=== PATIENT | male | born 1975 | race Caucasian/White ===

== ENCOUNTER → 2020-08-12 08:17 | Outpatient (BNVA) | payer BC, SELFPAY | PROVIDERS: Family Provider Family Medicine; PCP Family Medicine; Visit Provider Family Medicine | DX: Z13.6 Encounter for screening for cardiovascular disorders (principal); R35.1 Nocturia; R22.0 Localized swelling, mass and lump, head | CPT/HCPCS: 80053; 80061; 84153; 85025 ==

== ENCOUNTER 2021-01-10 07:44 | Emergency (ER) | payer BC, SELFPAY ==
[2021-01-10 07:53] VITALS: BP 148/89; PULSE 71; RESP 16; TEMP 36.9; O2SAT 97; BMI 46.8
--- NOTE | 2021-01-10 08:04 | CT_ITS ---
WS: [id number] CT HEAD TECHNIQUE: Noncontrast CT of the head obtained from the skullbase to the vertex. CLINICAL INFORMATION: new onset AMS, word searching COMPARISON: CT January 2013 DLP: 906.[address] scans at [facility] use at least one of these dose optimization techniques: automat ed exposure control; mA and/or kV adjustment per patient size (includes targeted exams where dose is matched to clinical indication); or iterative reconstruction. FINDINGS: No evidence of intracranial hemorrhage or mass effect. Ventricular system and basal cisterns are barrientos ntNo extra-axial fluid collections. No evidence of mass or mass effect. Normal beasley-white differentia tion. Paranasal sinuses and mastoid air cells are well aerated. .Normal visualized soft tissues. CT/CT head wo con* [id number] IMPRESSION: 1. No evidence of intracranial hemorrhage or mass effect. 2. Normal beasley-white differentiation. 3. No acute intracranial findings.
--- NOTE | 2021-01-10 08:04 | XR_ITS ---
WS: [id number] Portable AP upright chest, 01/10/2021 Clinical Data: dizzy Comparison: Portable chest, 01/26/2016. Findings: No nodules, masses or effusions are seen. The heart is normal. The pulmonary vascularity is not increased. No pneumonia or pneumothorax is seen. XR/XR chest 1V portable [id number] Impression: Negative chest.
--- NOTE | 2021-01-10 08:05 | ECG_ITS ---
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 Measurements Intervals Summers Rate: 55 P: 25 MT: 175 QRS: -20 QRSD: 125 T: 19 QT: 390 QTc: 375 Interpretive Statements SINUS BRADYCARDIA MODERATE INTRAVENTRICULAR CONDUCTION DELAY [110+ ms QRS DURATION] INTERPRETATION BASED ON A DEFAULT AGE OF 40 YEARS Compared to ECG 10/10/2015 21:07:10 No significant changes Electronically Signed On 01-11-2021 19:14:30 SAWDUST DRIER by Kirill Rosado M.D. [email or web address]
--- NOTE | 2021-01-10 08:06 | ED_ITS ---
HPI - General Adult General: Chief complaint: General Medical Stated complaint: dizzy, feels faint Time Seen by Provider: 01/10/21 07:59 History of Present Illness: HPI narrative: Patient walks in the ER. 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 Work brings him in. Patient said he has had a hard time finding words right now just feels lightheaded. States he is feeling fine yesterday has no history of this. Patient states he has been on intermittent fasting diet for the last 2 months because a history of hypoglycemia says has been tolerating the diet fine. Did not eat breakfast this morning. MD complaint: Lightheaded Onset (ago): minute(s) Associated symptoms: Reports no associated symptoms; Deny chest pain, dyspnea, headache(s), nausea, rash or vomiting Treatments prior to arrival: none Review of Systems Const: Denies: fever(s), chills or body aches Eyes: Denies: change in vision or blurry vision ENMT: Denies: throat pain or nasal congestion Card: Denies: chest pain or dyspnea on exertion Resp: Denies: dyspnea, productive cough or non-productive cough GI: Denies: abdominal pain, nausea or vomiting : Denies: difficulty urinating Musc: Denies: extremity pain Skin/Breast: Denies: rash Neuro: Reports: dizziness and other (Lightheaded difficulty getting words out); Denies: headache(s) Psych: Denies: anxiety or depression Amador/Lymph: Denies: easy bruising PFSH ED PFSH: Medical History Hepatic steatosis Hydronephrosis JUAN DIEGO (obstructive sleep apnea) Ureterolithiasis Surgical History History of back surgery Family History Mother Diabetes Hypertension Father Diverticulitis Social History (Updated 01/10/21 @ 07:58 by Jaylen Sharma RN) Smoking and tobacco status: never smoked Alcohol intake: never Substance/Drug Use: never Marital status: Current occupational status: employed History of recent travel: No Physical Exam Const: COMMON NORMALS: no acute distress, average body habitus and patient oriented x3 HENMT: COMMON NORMALS: normocephalic HEAD & SCALP: normal to inspection and normocephalic FACE & SINUS: normal facial exam Eye: COMMON NORMALS: conjunctivae normal GENERAL EYE: appearance normal, both eyes and all related structures CONJUNCTIVA: Yes conjunctivae normal Neck/C-Spine: COMMON NORMALS: no JVD Chest: COMMONS NORMALS: normal inspection of the chest Resp: COMMON NORMALS: normal respiratory effort and clear to auscultation bilaterally AUSCULTATION: clear to auscultation bilaterally Cardio: COMMON NORMALS: no JVD, regular rate and regular rhythm RATE: regular rate RHYTHM: regular rhythm GI: COMMON NORMALS: Normal to inspection, nondistended, normoactive bowel sounds present Extremity: COMMON NORMALS: normal to inspection and full ROM Neuro: MIGDALIA COMA SCALE: other (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 but does a good job with history answers all questions appropriately) COMMON NORMALS: patient oriented x3 Course Vital Signs: Vital signs: Vital Signs Temperature 98.4 F 01/10/21 07:53 Pulse Rate 51 L 01/10/21 09:00 Respiratory Rate 16 01/10/21 07:53 Blood Pressure 124/75 01/10/21 09:00 Pulse Oximetry 98 01/10/21 09:00 MDM - General Adult MDM Narrative: Medical decision making narrative: I think that the patient's fasting is probably what the cause of his problem is while his own tires he had a breakfast and then been since yesterday he had 8 prior blood sugar dropped down he has history of hypoglycemia. Talked with patient about changing diet or doing something different to help control his hyperglycemia. No symptoms hypoglycemia. Differential could include cardiac event, on detected neurological event, fatigue, infection and/or inner ear problems. RBC count was slightly elevated will recheck that when he visit with Patient will foll ow up with PCP care provider. At discharge time patient is all appropriate did discuss differential diagnosis and follow-up Dr. Posadas. Patient answers all questions appropriately neurologically all is intact. Lab Data: Labs: Lab Results 01/10/21 01/10/21 01/10/21 Range/Units 08:20 08:20 08:20 WBC 4.6 (4.0-10.0) 10^3/ uL RBC 5.58 H (4.1-5.3) 10^6/u L Hgb 16.2 (11.7-16.6) g/dL Hct 48.4 (42.0-52.0) % MCV 86.7 (80-94) fL MCH 29.0 (28.0-34.0) pg MCHC 33.5 (30.0-36.0) g/dL RDW 13.5 (12.1-15.1) % Plt Count 158 (130-400) 10^3/c mm MPV 11.5 H (7.4-10.4) fL Neut % (Auto) 75.6 % Lymph % (Auto) 17.6 % Mccormick % (Auto) 5.0 % Eos % (Auto) 0.9 % Baso % (Auto) 0.7 % Neut # (Auto) 3.48 (1.8-7.7) 10^3/u L Lymph # (Auto) 0.8 (0.8-4.8) 10^3/u L Mccormick # (Auto) 0.2 (0.2-0.9) 10^3/u L Eos # (Auto) 0.0 (0.0-0.8) 10^3/u L Baso # (Auto) 0.0 (0.0-0.1) 10^3/u L Nucleated RBC % (a uto) 0 % Nucleated RBCs # 0.0 /100WBC PT 14.20 (12.1-14.9) SECO NDS INR 1.07 (0.8-1.2) Sodium 141 (136-145) mmol/L Potassium 4.4 (3.5-5.1) mmol/L Chloride 106 (98-107) mmol/L Carbon Dioxide 26 (22-29) mmol/L Anion Gap 13.4 (5-19) BUN 8 (6-20) mg/dL Creatinine 0.7 (0.7-1.2) mg/dL GFR Calculation 121.4 (90-130) mL/min Glucose 102 (65-115) mg/dL POC Glucose (70-110) mg/dL Calculated Osmolal ity 291 (285-295) mOsm/k g Lactate (0.5-2.2) mmol/L Calcium 9.1 (8.5-10.5) mg/dL Total Bilirubin 0.7 (0.15-1.2) mg/dL AST 18 (0-40) U/L ALT 34 (0-41) U/L Alkaline Phosphata se 61 (40-130) IU/L Troponin T Baselin e (0-15) ng/L Total Protein 6.7 (6.6-8.7) g/dL Albumin 4.5 (3.5-5.2) g/dL Globulin 2.2 (1.3-4.6) g/dL 01/10/21 01/10/21 01/10/21 Range/Units 08:20 08:20 08:58 WBC (4.0-10.0) 10^3/ uL RBC (4.1-5.3) 10^6/u L Hgb (11.7-16.6) g/dL Hct (42.0-52.0) % MCV (80-94) fL MCH (28.0-34.0) pg MCHC (30.0-36.0) g/dL RDW (12.1-15.1) % Plt Count (130-400) 10^3/c mm MPV (7.4-10.4) fL Neut % (Auto) % Lymph % (Auto) % Mccormick % (Auto) % Eos % (Auto) % Baso % (Auto) % Neut # (Auto) (1.8-7.7) 10^3/u L Lymph # (Auto) (0.8-4.8) 10^3/u L Mccormick # (Auto) (0.2-0.9) 10^3/u L Eos # (Auto) (0.0-0.8) 10^3/u L Baso # (Auto) (0.0-0.1) 10^3/u L Nucleated RBC % (a uto) % Nucleated RBCs # /100WBC PT (12.1-14.9) SECO NDS INR (0.8-1.2) Sodium (136-145) mmol/L Potassium (3.5-5.1) mmol/L Chloride (98-107) mmol/L Carbon Dioxide (22-29) mmol/L Anion Gap (5-19) BUN (6-20) mg/dL Creatinine (0.7-1.2) mg/dL GFR Calculation (90-130) mL/min Glucose (65-115) mg/dL POC Glucose 94 (70-110) mg/dL Calculated Osmolal ity (285-295) mOsm/k g Lactate 0.9 (0.5-2.2) mmol/L Calcium (8.5-10.5) mg/dL Total Bilirubin (0.15-1.2) mg/dL AST (0-40) U/L ALT (0-41) U/L Alkaline Phosphata se (40-130) IU/L Troponin T Baselin e 7 (0-15) ng/L Total Protein (6.6-8.7) g/dL Albumin (3.5-5.2) g/dL Globulin (1.3-4.6) g/dL EKG Data^: EKG 1: EKG interpretation date: 01/10/21 EKG interpretation time: : Computer generated interpretation: Chest X-Ray 01/10/21 08:04 Impression: Negative chest. Head CT 01/10/21 08:04 IMPRESSION: 1. No evidence of intracranial hemorrhage or mass effect. 2. Normal beasley-white differentiation. 3. No acute intracranial findings. Ventricular rate 55 bpm CO interval 175 ms QRS durations 125 ms QT is 390 ms sinus bradycardia Discharge Plan Discharge Patient Disposition: Home Clinical Impression: Episodic lightheadedness Condition: Stable Prescriptions: No Action azithromycin 250 mg tablet See Rx Instructions PO .COMPLEX Qty: 6 RF: 0 Discharge Orders: Discharge ED (Routine); Ordered 01/10/21 Ordered By: Khai Grove Referrals: Jessie Posadas DO [Primary Care Provider] - Discharge Diet: Usual diet Discharge Activity: Increase activity as tolerated Patient Instructions: Lightheadedness (ED) Activity Restrictions/Additional Instructions: Monitor blood sugars regularly. Evaluate intermittent fasting diet by taking blood sugars regularly. Follow-up your family medical provider if symptoms continue. Coding Level of Care Code ED Solderer Assembly Repair for Chg Fwd Exam Comprehensive
[2021-01-10 08:11] VITALS: O2SAT 97
[2021-01-10 08:46] LABS: Basophils % 0.7 %; Eosinophils % 0.9 %; Hematocrit 48.4 % (42.0-52.0); Hemoglobin 16.2 g/dL (11.7-16.6); Lymphocytes # 0.8 10^3/uL (0.8-4.8); Lymphocytes % 17.6 %; Mean Corpuscular HGB Conc 33.5 g/dL (30.0-36.0); Mean Corpuscular Volume 86.7 fL (80-94); Mean Platelet Volume 11.5 fL (7.4-10.4); Monocytes # 0.2 10^3/uL (0.2-0.9); Neutrophils # 3.48 10^3/uL (1.8-7.7); Neutrophils % 75.6 %; Nucleated Red Blood Cells % 0 %; Platelet Count 158 10^3/cmm (130-400); Red Blood Count 5.58 10^6/uL (4.1-5.3); Red Cell Distribution Width 13.5 % (12.1-15.1); White Blood Count 4.6 10^3/uL (4.0-10.0)
[2021-01-10] MEDS: sodium chloride 0.9% 1,000 ML 999 ML IV (08:55)
[2021-01-10 08:56] LABS: INR 1.07 (0.8-1.2)
[2021-01-10 09:00] VITALS: BP 124/75; PULSE 51; O2SAT 98
[2021-01-10 09:02] LABS: Alanine Aminotransferase 34 U/L (0-41); Albumin Level 4.5 g/dL (3.5-5.2); Alkaline Phosphatase 61 IU/L (40-130); Anion Gap 13.4 (5-19); Aspartate Amino Transferase 18 U/L (0-40); Blood Urea Nitrogen 8 mg/dL (6-20); Calcium 9.1 mg/dL (8.5-10.5); Carbon Dioxide 26 mmol/L (22-29); Chloride 106 mmol/L (98-107); Globulin 2.2 g/dL (1.3-4.6); Glomerular Filtration Rate 121.4 mL/min (90-130); Glucose 102 mg/dL (65-115); Osmolality Calculated 291 mOsm/kg (285-295); Potassium 4.4 mmol/L (3.5-5.1); Sodium 141 mmol/L (136-145); Total Bilirubin 0.7 mg/dL (0.15-1.2); Total Protein 6.7 g/dL (6.6-8.7); Troponin(5th) Baseline 7 ng/L (0-15)
[2021-01-10 09:03] LABS: Lactate (Lactic Acid level) 0.9 mmol/L (0.5-2.2)
[2021-01-10 09:03] LABS: Glucose Point of Care 94 mg/dL (70-110)
[2021-01-10 10:10] VITALS: BP 129/80; PULSE 68; O2SAT 98
== END 2021-01-10 10:10 | disposition home or self-care (01) ==
PROVIDERS: Emergency Provider Nurse Practitioner Family; PCP Family Medicine
DX: R42 Dizziness and giddiness (principal)
CPT/HCPCS: 36416; 70450; 71045; 80053; 82962; 83605; 84484; 85025; 85610; 93005; 96360; 99283; J7030

== ENCOUNTER → 2021-03-04 16:16 | Outpatient (BNVA) | payer BC, SELFPAY | PROVIDERS: PCP Family Medicine; Visit Provider Family Medicine | DX: Z11.52 Encounter for screening for COVID-19 (principal) | CPT/HCPCS: 87635 ==

== ENCOUNTER → 2021-04-30 15:42 | Outpatient (BNVA) | payer BC, SELFPAY | PROVIDERS: PCP Family Medicine; Visit Provider Nurse Practitioner Family | DX: Z11.52 Encounter for screening for COVID-19 (principal) | CPT/HCPCS: 87635 ==

== ENCOUNTER → 2021-06-05 14:31 | Outpatient (BNVA) | payer BC, SELFPAY | PROVIDERS: PCP Family Medicine; Visit Provider Nurse Practitioner Family | DX: Z20.822 Contact with and (suspected) exposure to COVID-19 (principal); J06.9 Acute upper respiratory infection, unspecified | CPT/HCPCS: 87635 ==

== ENCOUNTER 2021-07-07 15:45 | Outpatient (CLI) | payer BC, SELFPAY ==
[2021-07-07 15:58] VITALS: BP 143/84; PULSE 63; RESP 16; TEMP 37.4; O2SAT 95
[2021-07-07 17:20] VITALS: BP 151/90; PULSE 59; RESP 16; TEMP 37.3; O2SAT 95
--- NOTE | 2021-07-17 14:06 | DCPLANNER ---
client experience manager had message that patient received the monoclonal antibody infusion. client experience manager spoke with patient, he stated that right now he is doing good. Patient stated that before the infusion he had a fever, his whole body was sore, he had a headache that was a sharp pain, and that his joints hurt. Patient stated that after the infusion his energy level is almost back to normal. He stated that he is back to work. He stated that he does not have any symptoms at this time.
== END 2021-07-07 20:00 | disposition home or self-care (01) ==
LOC: OPS 12-01 12:11
PROVIDERS: PCP Family Medicine; Visit Provider Nurse Practitioner Family
DX: U07.1 COVID-19 (principal)
CPT/HCPCS: 87426; 96365

== ENCOUNTER → 2021-07-16 00:01 | Outpatient (BNVA) | payer BC, SELFPAY | PROVIDERS: PCP Family Medicine; Visit Provider Nurse Practitioner Family | DX: Z20.822 Contact with and (suspected) exposure to COVID-19 (principal) | CPT/HCPCS: 87426 ==

== ENCOUNTER → 2021-08-09 11:22 | Outpatient (BNVA) | payer BC, SELFPAY | PROVIDERS: PCP Family Medicine; Visit Provider Nurse Practitioner | DX: S49.92XA Unspecified injury of left shoulder and upper arm, initial encounter (principal); X58.XXXA Exposure to other specified factors, initial encounter | CPT/HCPCS: 73030 ==

== ENCOUNTER → 2021-08-25 15:09 | Outpatient (BNVA) | payer BC, SELFPAY | PROVIDERS: PCP Family Medicine; Visit Provider Family Medicine | DX: R30.0 Dysuria (principal) | CPT/HCPCS: 81000; 87086 ==

== ENCOUNTER → 2021-12-23 14:50 | Outpatient (BNVA) | payer BC, SELFPAY | PROVIDERS: PCP Family Medicine; Visit Provider Nurse Practitioner Family | DX: Z20.822 Contact with and (suspected) exposure to COVID-19 (principal) | CPT/HCPCS: 87426 ==

== ENCOUNTER → 2022-04-22 14:51 | Outpatient (BNVA) | payer BC, SELFPAY | PROVIDERS: PCP Family Medicine | DX: Z11.52 Encounter for screening for COVID-19 (principal) | CPT/HCPCS: 87635 ==

== ENCOUNTER 2022-09-23 15:30 | Outpatient (CLI) | payer BC, SELFPAY | END 2022-09-23 15:31 | disposition home or self-care (01) | LOC: SLEEP 09-24 11:09 | PROVIDERS: PCP Family Medicine; Visit Provider Family Medicine | DX: G47.33 Obstructive sleep apnea (adult) (pediatric) (principal) | CPT/HCPCS: G0399 ==

== ENCOUNTER 2022-12-07 06:17 | Emergency (ER) | payer MEDICAID, SELFPAY ==
[2022-12-07] VITALS (7 sets, daily range): BP systolic 135–147; BP diastolic 77–84; PULSE 58–68; RESP 16–22; TEMP 36.4–36.8; O2SAT 97–100; BMI 46.1
--- NOTE | 2022-12-07 06:48 | CTR_ITS ---
PROCEDURE INFORMATION: Exam: CT Abdomen And Pelvis Without Contrast Exam date and time: 12/07/2022 7:12 AM Age: 47 years old Clinical indication: Abdominal pain; Localized; Right lower quadrant (rlq); Prior surgery; Surgery type: Back; Additional info: R flank and rlq pain TECHNIQUE: Imaging protocol: Computed tomography of the abdomen and pelvis without contrast. Radiation optimization: All CT scans at this facility use at least one of these dose optimization techniques: automated exposure control; mA and/or kV adjustment per patient size (includes targeted exams where dose is matched to clinical indication); or iterative reconstruction. COMPARISON: CT abdomen pelvis w con* [id number] 09/25/2018 7:50 AM RADIATION DOSE METRICS: Total DLP (mGy-cm): 1382.42 FINDINGS: Lungs: Right middle lobe medial segment, lateral right basilar, inferior lingular mild pulmonary subsegmental atelectasis. Liver: Normal. No mass. Gallbladder and bile ducts: Normal. No calcified stones. No ductal dilation. Pancreas: Moderate pancreatic atrophy. Spleen: Normal. No splenomegaly. Adrenal glands: Normal. No mass. Kidneys and ureters: The right pelvic ureter is dilated to the level of a 4 x 2 x 2 mm calculus slightly more than 1 cm above the ureterovesical junction. The right kidney shows mild pelviectasis and borderline abdominal ureterectasis with mild perinephric stranding. Stomach and bowel: Unremarkable. No obstruction. No mucosal thickening. Appendix: The vermiform appendix is normal. Intraperitoneal space: No free air. No significant fluid collection. Vasculature: Calcified phleboliths are present in the lower pelvis bilaterally. Lymph nodes: No enlarged lymph nodes. Urinary bladder: Unremarkable as visualized. Reproductive: The prostate gland demonstrates nonspecific parenchymal calcifications. Bones/joints: Moderate L4-L5 and L5-S1 spondylosis with bilateral neural foraminal stenoses. Soft tissues: A small paraumbilical hernia containing only abdominal fat is noted. CT/CT kidney stone [id number] IMPRESSION: 1. Right obstructive uropathy secondary to a distal pelvic ureteral calculus. 2. Chronic calcific prostatitis.
[2022-12-07] MEDS: ondansetron 2 mg/ML SDV 2 mL 4 MG IVP (06:53)
[2022-12-07] MEDS: morphine 4 mg/mL SDV 1 mL IVP (06:54)
[2022-12-07 07:01] LABS: Alanine Aminotransferase 33 U/L (0-41); Albumin Level 4.4 g/dL (3.5-5.2); Alkaline Phosphatase 59 U/L (40-130); Anion Gap 16.2 (5-19); Aspartate Amino Transferase 16 U/L (0-40); Blood Urea Nitrogen 12 mg/dL (6-20); Calcium 8.9 mg/dL (8.5-10.5); Carbon Dioxide 22 mmol/L (22-29); Chloride 101 mmol/L (98-107); Globulin 2.5 g/dL (1.3-4.6); Glomerular Filtration Rate 103.2 mL/min (90-130); Glucose 130 mg/dL (65-115); Lipase 18 U/L (13-60); Osmolality Calculated 282 mOsm/kg (285-295); Potassium 4.2 mmol/L (3.5-5.1); Sodium 135 mmol/L (136-145); Total Bilirubin 0.7 mg/dL (0.15-1.2); Total Protein 6.9 g/dL (6.6-8.7)
[2022-12-07 07:06] LABS: Basophils % 0.6 %; Eosinophils % 0.7 %; Hematocrit 48.6 % (42.0-52.0); Hemoglobin 16.5 g/dL (11.7-16.6); Lymphocytes # 1.2 10^3/uL (0.8-4.8); Mean Corpuscular Hemoglobin 29.7 pg (28.0-34.0); Mean Corpuscular Volume 87.4 fl (80-94); Mean Platelet Volume 10.9 fL (7.4-10.4); Monocytes # 0.5 10^3/uL (0.2-0.9); Monocytes % 8.8 %; Neutrophils # 3.69 10^3/uL (1.8-7.7); Neutrophils % 67.7 %; Nucleated Red Blood Cells % 0 %; Platelet Count 168 10^3/cmm (130-400); Red Blood Count 5.56 10^6/uL (4.1-5.3); White Blood Count 5.5 10^3/uL (4.0-10.0)
--- NOTE | 2022-12-07 08:02 | ED_ITS ---
HPI - Abdominal Pain General: Chief Complaint: Abdominal Pain Stated Complaint: low abd pain Time Seen by Provider: 12/07/22 06:33 Source: patient Mode of arrival: ambulatory History of Present Illness: 47-year-old male presents emergency room with right flank pain predominant pain is radiated into the right lower quadrant. Sharp unrelenting pain. He has had renal stones in the past states this feels the same. Denies any vomiting or diarrhea. No previous abdominal surgeries. No hematuria dysuria urgency or frequency that he has noted. MD elicited complaint: abdominal pain Pertinent past history: kidney stones Onset (ago): hour(s) Pain Consistency: constant Location: RLQ Quality: sharp Radiation: R flank Migration to: RLQ Exacerbating factors: nothing Relieving factors: nothing Associated Symptoms: Denies belching, bloating, change in bowel habits, change in stool character, chills, coffee ground emesis, constipation, GI cramping, diarrhea, dyspepsia, dysuria, excessive flatus, fever(s), heartburn, hemato chezia, hematuria, hematemesis, fecal incontinence, loose stools, melena, nausea, poor appetite, syncope and vomiting Review of Systems Const: Denies: fever(s), chills, fatigue or malaise ENMT: Denies: throat pain, ear or mastoid pain, nasal discharge or nasal congestion Card: Denies: chest pain, palpitations, irregular heart rhythm, edema or syncope Resp: Denies: dyspnea, productive cough or non-productive cough GI: Denies: abdominal pain, nausea, vomiting, hematemesis, coffee ground emesis, heartburn, diarrhea, constipation, bloating, GI cramping, belching, excessive flatus, fecal incontinence, change in bowel habits, change in stool character, hematochezia or melena : Denies: flank pain, difficulty urinating, dysuria, urinary frequency, urinary urgency or hematuria Skin/Breast: Denies: rash or pruritus PFSH ED PFSH: Medical History Dysuria Hydronephrosis Left facial swelling Lumbar degenerative disc disease Nocturia JUAN DIEGO (obstructive sleep apnea) Osteoarthritis involving multiple joints on both sides of body Umbilical hernia Dr. Hayes 09/12/2021 visit Ureterolithiasis Surgical History History of back surgery History of dental surgery Family History Mother Diabetes Hypertension Father Diverticulitis Social History Smoking and tobacco status: never smoked Second hand smoke exposure: No Alcohol intake: never Desire information about alcohol rehabilitation?: No Desire information about substance/drug rehabilitation?: No Marital status: Current occupational status: employed History of recent travel: No Physical Exam Const: COMMON NORMALS: no acute distress GENERAL APPEARANCE: cooperative and comfortable ORIENTATION/CONSCIOUSNESS: Yes awake, Yes oriented to person, Yes oriented to place and Yes oriented to time HENMT: COMMON NORMALS: normocephalic, atraumatic and hearing grossly normal bilaterally HEAD & SCALP: normocephalic and atraumatic Resp: COMMON NORMALS: normal respiratory effort, No retractions, No use of accessory muscles and clear to auscultation bilaterally AUSCULTATION: clear to auscultation bilaterally Cardio: COMMON NORMALS: regular rate, regular rhythm and No murmurs present (Cardio) RATE: regular rate RHYTHM: regular rhythm GI: COMMON NORMALS: Soft to palpation and No hepatosplenomegaly present AUSCULTATION: Yes normoactive bowel sounds PALPATION: Yes Soft to palpation, No Tenderness to palpation present (GI), No Guarding due to palpation present (GI) and Yes No hepatosplenomegaly present : BLADDER/KIDNEY EXAM: Yes CVA tenderness Back/Pelvis: GENERAL BACK: Yes CVA tenderness CVA tenderness: right Extremity: COMMON NORMALS: normal to inspection, capillary refill normal, no clubbing, cyanosis or edema, no calf tenderness and no pedal edema Neuro: SENSORIUM/ORIENTATION: Yes oriented to person, Yes oriented to place and Yes oriented to time Skin: COMMON NORMALS: no rashes or lesions noted GENERAL SKIN EXAM: no rashes or lesions noted Course Vital Signs: Vital signs: Vital Signs Temperature 98.3 F 12/07/22 09:54 Pulse Rate 68 12/07/22 09:54 Respiratory Rate 18 12/07/22 09:54 Blood Pressure 135/77 12/07/22 09:54 Pulse Oximetry 97 12/07/22 09:54 Oxygen Delivery Me thod 12/07/22 09:54 MDM - Abdominal Pain Medical Decision Making CT shows right ureterolithiasis 4 x 2 x 2. Given the size of the stone would expect that the past patient's pain was difficult to initially get under control but did improve he is better now discharged home on hydrocodone tamsulosin 1 antiemetics strain urine. Medical Records I reviewed the patient's medical records. Lab Data I reviewed the patient's lab results. 12/07/22 06:32 12/07/22 06:32 Labs/Radiology: Radiology Impressions Abdomen/Pelvis CT 12/07/22 06:48 IMPRESSION: 1. Right obstructive uropathy secondary to a distal pelvic ureteral calculus. 2. Chronic calcific prostatitis. Laboratory Results WBC 5.5 10^3/uL (4.0-10.0) 12/07/22 06:32 RBC 5.56 10^6/uL (4.1-5.3) H 12/07/22 06:32 Hgb 16.5 g/dL (11.7-16.6) 12/07/22 06:32 Hct 48.6 % (42.0-52.0) 12/07/22 06:32 MCV 87.4 fl (80-94) 12/07/22 06:32 MCH 29.7 pg (28.0-34.0) 12/07/22 06:32 MCHC 34.0 g/dL (30.0-36.0) 12/07/22 06:32 RDW 13.0 % (12.1-15.1) 12/07/22 06:32 Plt Count 168 10^3/cmm (130-400) 12/07/22 06:32 MPV 10.9 fL (7.4-10.4) H 12/07/22 06:32 Neut % (Auto) 67.7 % 12/07/22 06:32 Lymph % (Auto) 22.0 % 12/07/22 06:32 Island % (Auto) 8.8 % 12/07/22 06:32 Eos % (Auto) 0.7 % 12/07/22 06:32 Baso % (Auto) 0.6 % 12/07/22 06:32 Neut # (Auto) 3.69 10^3/uL (1.8-7.7) 12/07/22 06:32 Lymph # (Auto) 1.2 10^3/uL (0.8-4.8) 12/07/22 06:32 Island # (Auto) 0.5 10^3/uL (0.2-0.9) 12/07/22 06:32 Eos # (Auto) 0.0 10^3/uL (0.0-0.8) 12/07/22 06:32 Baso # (Auto) 0.0 10^3/uL (0.0-0.1) 12/07/22 06:32 Nucleated RBC % (auto) 0 % 12/07/22 06:32 Nucleated RBCs # 0.0 /100WBC 12/07/22 06:32 Sodium 135 mmol/L (136-145) L 12/07/22 06:32 Potassium 4.2 mmol/L (3.5-5.1) 12/07/22 06:32 Chloride 101 mmol/L (98-107) 12/07/22 06:32 Carbon Dioxide 22 mmol/L (22-29) 12/07/22 06:32 Anion Gap 16.2 (5-19) 12/07/22 06:32 BUN 12 mg/dL (6-20) 12/07/22 06:32 Creatinine 0.8 mg/dL (0.7-1.2) 12/07/22 06:32 GFR Calculation 103.2 mL/min (90-130) 12/07/22 06:32 Glucose 130 mg/dL (65-115) H 12/07/22 06:32 Calculated Osmolality 282 mOsm/kg (285-295) L 12/07/22 06:32 Calcium 8.9 mg/dL (8.5-10.5) 12/07/22 06:32 Total Bilirubin 0.7 mg/dL (0.15-1.2) 12/07/22 06:32 AST 16 U/L (0-40) 12/07/22 06:32 ALT 33 U/L (0-41) 12/07/22 06:32 Alkaline Phosphatase 59 U/L (40-130) 12/07/22 06:32 C-Reactive Protein 4.0 mg/L (0.0-4.9) 12/07/22 06:32 Total Protein 6.9 g/dL (6.6-8.7) 12/07/22 06:32 Albumin 4.4 g/dL (3.5-5.2) 12/07/22 06:32 Globulin 2.5 g/dL (1.3-4.6) 12/07/22 06:32 Lipase 18 U/L (13-60) 12/07/22 06:32 Urine Color Dark yellow (Yellow) 12/07/22 07:44 Urine Appearance Clear (CLEAR) 12/07/22 07:44 Urine pH 5 (5-7) 12/07/22 07:44 Ur Specific [place] 1.025 (1.005-1.030) 12/07/22 07:44 Urine Protein Trace (Negative) 12/07/22 07:44 Urine Glucose (UA) Norm (Normal) 12/07/22 07:44 Urine Ketones 1+ (Negative) H 12/07/22 07:44 Urine Blood 3+ (Negative) H 12/07/22 07:44 Urine Nitrate Negative (Negative) 12/07/22 07:44 Urine Bilirubin 1+ (Negative) H 12/07/22 07:44 Urine Urobilinogen Norm mg/dL (Negative) 12/07/22 07:44 Ur Leukocyte Esterase Negative (Negative) 12/07/22 07:44 Urine RBC 80-100 /hpf (0-2) H 12/07/22 07:44 Urine WBC Rare /hpf (0-5) 12/07/22 07:44 Ur Squamous Epith Cells None /hpf (0-5) 12/07/22 07:44 Amorphous Sediment Not Reportable 12/07/22 07:44 Urine Bacteria 1+ /hpf (NONE) H 12/07/22 07:44 Urine Mucus 1+ /hpf 12/07/22 07:44 Discharge Plan Discharge Patient Disposition: Home Clinical Impression: Calculus of kidney Condition: Stable Prescriptions: New tamsulosin 0.4 mg capsule 0.4 mg PO DAILY Qty: 20 0RF hydrocodone-acetaminophen 5-325 mg tablet 1 tab PO Q6H PRN (Reason: pain) Qty: 20 0RF ondansetron HCl 4 mg tablet 4 mg PO Q6H PRN (Reason: nausea and vomiting) Qty: 20 0RF No Action (DME) cpap and supplies See Rx Instructions .Route .MEDSUPPLY Qty: 1 0RF Rx Instructions: As directed (DME) CPAP See Rx Instructions .Route .MEDSUPPLY Qty: 1 0RF Rx Instructions: 6-16CM Discharge Orders: Discharge ED (Routine); Ordered 12/07/22 Ordered By: Lamine Larose Referrals: Jessie Posadas DO [Primary Care Provider] - Discharge Diet: Usual diet Discharge Activity: Increase activity as tolerated Patient Instructions: Opioid Safety, Pain Management Activity Restrictions/Additional Instructions: You were seen today for flank pain. You have a 4 mm renal stone in the right ureter. Strain urine until the stone passes. Start tamsulosin 1 daily to improve potential for stone to pass use hydrocodone and ondansetron for pain nausea and vomiting as needed. Case management will schedule follow-up appointment with Dr. Cohen for you. Coding Level of Care Code ED Crumb Packer for Demarcus Stern
[2022-12-07 08:09] LABS: Glucose Urine UA Norm (Normal); Protein Urine Trace (Negative); Specific Gravity, Urine 1.025 (1.005-1.030); Urine Appearance Clear (CLEAR); Urine Color Dark Yellow (Yellow); pH Urine 5 (5-7)
[2022-12-07 08:10] LABS: Add Urine Culture? Yes; Add Urine Microscopic? YES; Bacteria Urine 1+ /hpf; Bilirubin Urine 1+ (Negative); Blood Urine 3+ (Negative); Ketones Urine 1+ (Negative); Leukocyte Esterase Urine Negative (Negative); Mucus Urine 1+ /hpf; Nitrate Urine Negative (Negative); RBC Urine 80-100 /hpf (0-2); Urobilinogen Urine Norm (Negative); WBC Urine RARE /hpf (0-5)
--- NOTE | 2022-12-07 09:19 | DCPLANNER ---
Addendum entered by Noemi Boswell 12/10/22 13:36: Patient had a follow up appointment scheduled with urology - patient did attend appointment. Addendum entered by Noemi Boswell 12/08/22 10:26: Patient has a follow up appointment scheduled for , December 10, [address]22 at 7:[address] Cohen at urology. Clinic will call patient with appointment information. Original Note: project manager/design manager had message to schedule a follow up appointment for patient with urology. project manager/design manager sent patients information to the front office staff at urology. Patients information will be printed and reviewed. Clinic will call patient with appointment information.
[2022-12-07] MEDS: morphine 4 mg/mL SDV 1 mL 2 MG IVP (09:22)
[2022-12-07] MEDS: morphine 4 mg/mL SDV 1 mL 6 MG IM (09:23)
[2022-12-07] MEDS: HYDROmorphone 1 mg/mL INJ 1 mL IVP (09:53)
== END 2022-12-07 10:32 | disposition home or self-care (01) ==
PROVIDERS: Emergency Medicine; Emergency Provider Family Medicine; PCP Family Medicine
DX: N20.0 Calculus of kidney (principal); N13.8 Other obstructive and reflux uropathy; N20.1 Calculus of ureter; Z87.442 Personal history of urinary calculi
CPT/HCPCS: 74176; 80053; 81001; 83690; 85025; 86140; 87086; 96372; 96374; 96375; 96376; 99285; J1170; J2270; J2405

== ENCOUNTER 2022-12-07 11:31 | Emergency (ER) | payer MEDICAID, SELFPAY ==
[2022-12-07 11:42] VITALS: BP 134/82; PULSE 60; RESP 14; TEMP 36.3; O2SAT 93
--- NOTE | 2022-12-07 11:46 | ED_ITS ---
Documented by User: STACIE Henderson 12/08/22 07:10 HPI - Syncope General: Chief Complaint: Syncope Stated Complaint: dizziness Time Seen by Provider: 12/07/22 11:40 History of Present Illness: Patient is a 47-year-old male comes to the ED after near syncopal episode. Patient was seen here in the ED this morning and diagnosed with a kidney stone. He was given IV morphine and Dilaudid and discharged home. He had been discharged for 15 to 20 minutes and he was called to come back to the ED for some paperwork. While getting the paperwork here he started feeling dizzy and was diaphoretic. He felt like he was going to pass out but did not have a full syncopal episode. He describes still feeling dizzy but also feels very sleepy and his body feels heavy. Denies any chest pain. Associated symptoms: Reports nausea; Deny abdominal pain, chest pain, fever(s) or headache(s) Review of Systems Const: Reports: diaphoresis; Denies: fever(s), chills or fatigue Eyes: Denies: change in vision or eye discomfort ENMT: Denies: throat pain, odynophagia, nasal discharge or nasal congestion Card: Reports: pre-syncope; Denies: chest pain, palpitations, edema, swelling of feet/ankles, dyspnea on exertion or orthopnea Resp: Denies: dyspnea, productive cough or non-productive cough GI: Reports: nausea; Denies: abdominal pain, vomiting, diarrhea, constipation or hematochezia : Denies: flank pain, difficulty urinating, dysuria or hematuria Musc: Denies: neck pain, back pain or extremity swelling Skin/Breast: Denies: rash or new lesions Neuro: Reports: dizziness; Denies: headache(s), numbness in extremities or weakness in extremities [facility] ED PFSH: Medical History (Updated 12/07/22 @ 14:20 by STACIE Henderson) Dysuria Hydronephrosis Left facial swelling Lumbar degenerative disc disease Nocturia JUAN DIEGO (obstructive sleep apnea) Osteoarthritis involving multiple joints on both sides of body Umbilical hernia Dr. Hayes 09/12/2021 visit Ureterolithiasis Urolithiasis Surgical History History of back surgery History of dental surgery Family History Mother Diabetes Hypertension Father Diverticulitis Social History Smoking and tobacco status: never smoked Second hand smoke exposure: No Alcohol intake: never Desire information about alcohol rehabilitation?: No Desire information about substance/drug rehabilitation?: No Marital status: Current occupational status: employed History of recent travel: No Physical Exam Const: COMMON NORMALS: patient oriented x3 and alert GENERAL APPEARANCE: cooperative HENMT: COMMON NORMALS: normocephalic HEAD & SCALP: normocephalic MOUTH: Normal oral and palatal mucosa present THROAT: posterior oropharynx normal and uvula midline Neck/C-Spine: COMMON NORMALS: supple GENERAL: Yes normal visual inspection Resp: COMMON NORMALS: normal respiratory effort, No retractions, No use of accessory muscles and clear to auscultation bilaterally AUSCULTATION: clear to auscultation bilaterally Cardio: COMMON NORMALS: regular rate, regular rhythm, S1 normal heart sound present, S2 normal heart sound present, No gallops present (Cardio), No clicks present (Cardio), No murmurs present (Cardio) and Peripheral pulses 2+ throughout RATE: regular rate RHYTHM: regular rhythm HEART SOUNDS: S1 normal heart sound present and S2 normal heart sound present PERIPHERAL PULSES: Peripheral pulses 2+ throughout GI: COMMON NORMALS: Normal to inspection, nondistended, normoactive bowel sounds present, Soft to palpation, non-tender and no masses PALPATION: Yes Soft to palpation : COMMON NORMALS: Yes no CVA tenderness BLADDER/KIDNEY EXAM: Yes no CVA tenderness Back/Pelvis: COMMON NORMALS: no CVA tenderness Extremity: COMMON NORMALS: normal to inspection Neuro: COMMON NORMALS: patient oriented x3 SENSORIUM/ORIENTATION: Yes alert GAIT: Yes Normal gait present Skin: GENERAL SKIN EXAM: dry skin Course Vital Signs: Vital signs: Vital Signs Temperature 97.7 F 12/07/22 14:44 Pulse Rate 64 12/07/22 14:44 Respiratory Rate 15 12/07/22 14:44 Blood Pressure 137/86 12/07/22 14:44 Pulse Oximetry 96 12/07/22 14:44 Oxygen Delivery Me thod 12/07/22 14:44 MDM - Syncope Medical Decision Making Patient is a 47-year-old male comes to the ED after near syncopal episode. Patient was seen here in the ED this morning and diagnosed with a kidney stone. He was given IV morphine and Dilaudid and discharged home. He had been discharged for 15 to 20 minutes and he was called to come back to the ED for some paperwork. While getting the paperwork here he started feeling dizzy and was diaphoretic. He felt like he was going to pass out but did not have a full syncopal episode. Vitals are stable. Patient was given 1 L of IV fluids, nausea and pain meds and his symptoms improved and he was ready to be discharged home. I talked with Dr. Larose about patient case and his near syncopal episode likely due to his recent dose of Dilaudid before discharge from ED earlier this morning. He was stable for discharge home and told to follow-up with Dr. Cohen at his scheduled appointment. Return to ED precautions given. Patient understood and agreed with plan. Discharge Plan Discharge Patient Disposition: Home Clinical Impression: Near syncope Condition: Stable Prescriptions: No Action (DME) cpap and supplies See Rx Instructions .Route .MEDSUPPLY Qty: 1 0RF Rx Instructions: As directed (DME) CPAP See Rx Instructions .Route .MEDSUPPLY Qty: 1 0RF Rx Instructions: 6-16CM tamsulosin 0.4 mg capsule 0.4 mg PO DAILY Qty: 20 0RF hydrocodone-acetaminophen 5-325 mg tablet 1 tab PO Q6H PRN (Reason: pain) Qty: 20 0RF ondansetron HCl 4 mg tablet 4 mg PO Q6H PRN (Reason: nausea and vomiting) Qty: 20 0RF Discharge Orders: Discharge ED (Routine); Ordered 12/07/22 Ordered By: Robinson Christine Referrals: Jessie Posadas DO [Primary Care Provider] - Discharge Diet: Regular Discharge Activity: Increase activity as tolerated Activity Restrictions/Additional Instructions: Follow-up with medical provider as directed in the next 3 to 5 days for reevaluation. Take all medications as previously prescribed. Return to the ER or your medical provider if condition worsens. Please read and understand discharge instructions. Thank you for choosing [facility] for your healthcare needs today. Please realize this is an emergency room and that we are providing you with a medical screening exam and this may not be complete and all inclusive of all the testing and or work up that you may need to determine your ailment or severity of your illness. It is very important that you follow up as instructed or that you return to the Emergency Department should you have concerns or if your condition changes or worsens in any way. Coding Level of Care Code ED Risk And Insurance Consultant for Chg Fwd Exam Comprehensive Documented by User: Lamine Larose DO 12/08/22 14:55 HPI - Syncope General: Chief Complaint: Syncope Stated Complaint: dizziness Time Seen by Provider: 12/07/22 11:40 PFSH ED PFSH: Medical History (Updated 12/07/22 @ 14:20 by STACIE Henderson) Dysuria Hydronephrosis Left facial swelling Lumbar degenerative disc disease Nocturia JUAN DIEGO (obstructive sleep apnea) Osteoarthritis involving multiple joints on both sides of body Umbilical hernia Dr. Hayes 09/12/2021 visit Ureterolithiasis Urolithiasis Surgical History History of back surgery History of dental surgery Family History Mother Diabetes Hypertension Father Diverticulitis Social History Smoking and tobacco status: never smoked Second hand smoke exposure: No Alcohol intake: never Desire information about alcohol rehabilitation?: No Desire information about substance/drug rehabilitation?: No Marital status: Current occupational status: employed History of recent travel: No Course Vital Signs: Vital signs: Vital Signs Temperature 97.7 F 12/07/22 14:44 Pulse Rate 64 12/07/22 14:44 Respiratory Rate 15 12/07/22 14:44 Blood Pressure 137/86 12/07/22 14:44 Pulse Oximetry 96 12/07/22 14:44 Oxygen Delivery Me thod 12/07/22 14:44 MDM - Syncope Medical Decision Making Patient is a 47-year-old male comes to the ED after near syncopal episode. Patient was seen here in the ED this morning and diagnosed with a kidney stone. He was given IV morphine and Dilaudid and discharged home. He had been discharged for 15 to 20 minutes and he was called to come back to the ED for some paperwork. While getting the paperwork here he started feeling dizzy and was diaphoretic. He felt like he was going to pass out but did not have a full syncopal episode. Vitals are stable. Patient was given 1 L of IV fluids, nausea and pain meds and his symptoms improved and he was ready to be discharged home. I talked with Dr. Larose about patient case and his near syncopal episode likely due to his recent dose of Dilaudid before discharge from ED earlier this morning. He was stable for discharge home and told to follow-up with Dr. Cohen at his scheduled appointment. Return to ED precautions given. Patient understood and agreed with plan. Chart reviewed and patient discussed with midlevel. Agree with assessment and plan. Discharge Plan Discharge Patient Disposition: Home Clinical Impression: Near syncope Condition: Stable Prescriptions: No Action (DME) cpap and supplies See Rx Instructions .Route .MEDSUPPLY Qty: 1 0RF Rx Instructions: As directed (DME) CPAP See Rx Instructions .Route .MEDSUPPLY Qty: 1 0RF Rx Instructions: 6-16CM tamsulosin 0.4 mg capsule 0.4 mg PO DAILY Qty: 20 0RF hydrocodone-acetaminophen 5-325 mg tablet 1 tab PO Q6H PRN (Reason: pain) Qty: 20 0RF ondansetron HCl 4 mg tablet 4 mg PO Q6H PRN (Reason: nausea and vomiting) Qty: 20 0RF Discharge Orders: Discharge ED (Routine); Ordered 12/07/22 Ordered By: Robinson Christine Referrals: Jessie Posadas DO [Primary Care Provider] - Discharge Diet: Regular Discharge Activity: Increase activity as tolerated Activity Restrictions/Additional Instructions: Follow-up with medical provider as directed in the next 3 to 5 days for reevaluation. Take all medications as previously prescribed. Return to the ER or your medical provider if condition worsens. Please read and understand discharge instructions. Thank you for choosing [facility] for your healthcare needs today. Please realize this is an emergency room and that we are providing you with a medical screening exam and this may not be complete and all inclusive of all the testing and or work up that you may need to determine your ailment or severity of your illness. It is very important that you follow up as instructed or that you return to the Emergency Department should you have concerns or if your condition changes or worsens in any way. Coding Level of Care Code ED Risk And Insurance Consultant for Demarcus Stern Exam Comprehensive
[2022-12-07] MEDS: sodium chloride 0.9% 1,000 ML 999 ML IV (12:36)
[2022-12-07 12:38] VITALS: RESP 14
[2022-12-07] MEDS: ondansetron 2 mg/ML SDV 2 mL 4 MG IVP (12:38)
[2022-12-07] MEDS: oxyCODONE-APAP 5-325 mg Tablet 1 TAB PO (12:38)
[2022-12-07 13:35] VITALS: BP 143/88; PULSE 60; RESP 14; TEMP 36.5; O2SAT 99
[2022-12-07 14:44] VITALS: BP 137/86; PULSE 64; RESP 15; TEMP 36.5; O2SAT 96
== END 2022-12-07 14:43 | disposition home or self-care (01) ==
PROVIDERS: Emergency Provider Physician Assistant; PCP Family Medicine
DX: R55 Syncope and collapse (principal)
CPT/HCPCS: 96374; 99284; J2405; J7030

== ENCOUNTER 2022-12-10 06:22 | Outpatient (CLI) | payer MEDICAID, SELFPAY ==
--- NOTE | 2022-12-10 06:42 | XR_ITS ---
WS: [id number] XR KUB [id number] REASON FOR EXAM: ureterolithiasis FINDINGS: Very small distal right ureteral calculus on CT scan of 10/07/2023. There are 2 calcifications identifiable in the right pelvis however these appear to correlate with hi story ureteral calcification seen on the CT scan. There may be a small faint calcification between th e 2 extra ureteral calcifications that could represent the distal right ureteral calculus, however th is is equivocal. No other significant abnormality of the abdomen. XR/XR KUB [id number] IMPRESSION: Equivocal identification of previously demonstrated distal right ureteral calcu stephen.
== END 2022-12-10 06:23 | disposition home or self-care (01) ==
LOC: RAD 06:23
PROVIDERS: PCP Family Medicine; Visit Provider Urology
DX: N20.1 Calculus of ureter (principal)
CPT/HCPCS: 74018; 81003

== ENCOUNTER 2022-12-15 06:52 | Outpatient (CLI) | payer BC, SELFPAY ==
--- NOTE | 2022-12-15 07:42 | XR_ITS ---
WS: [id number] KUB, AP view, 12/15/2022 Clinical Data: STONES Comparison: KUB, 12/10/2022 Findings: No abnormal intraabdominal masses or calcifications are seen. There is no dilatated small bowel or ev idence of obstruction. No definite distal ureteral calculi are identified. XR/XR KUB [id number] Impression: Negative KUB.
== END 2022-12-15 06:53 | disposition home or self-care (01) ==
LOC: RAD 06:53
PROVIDERS: PCP Family Medicine; Visit Provider Urology
DX: N20.1 Calculus of ureter (principal)
CPT/HCPCS: 74018; 81003

== ENCOUNTER 2022-12-16 06:43 | Day surgery (SDC) | payer BC, MEDICAID, SELFPAY ==
[2022-12-15 13:28] VITALS: BMI 46.1
[2022-12-16] VITALS (10 sets, daily range): BP systolic 118–136; BP diastolic 76–90; PULSE 52–86; RESP 11–21; TEMP 36.1–36.6; O2SAT 93–95
[2022-12-16] MEDS: sodium chloride 0.9% 1,000 ML 30 ML IV (07:16)
--- NOTE | 2022-12-16 08:27 | P.ANESASSM_ITS ---
Pre-Anesthetic Assessment Height/Weight: Height 1.85 m Weight 158.757 kg Temp Pulse Resp BP Pulse Ox O2 Del Method 97.6 F 52 L 18 134/90 94 12/16/22 06:59 12/16/22 06:59 12/16/22 06:59 12/16/22 06:59 12/16/22 06:59 12/16/22 07:08 Preop Diagnosis: Refractory, symptomatic right distal ureteral stone Operation Date: 12/16/22 08:45 Proposed Procedures p Cystoscopy, Right: Retrograde, ureteroscopy laser, stent [id number], [id number] modifier 26 38248,N20.9(Not Applicable) - Chau Cohen MD s Retrograde Pyelogram(Right) - MD tadeo Coates Ureteroscopy(Right) - MD tadeo Coates Laser Lithotripsy(Right) - MD tadeo Coates Ureteral Stent Placement(Right) - Chau Cohen MD Familial anesthetic complications: none Was Beta Randolph taken within 24 hours: N/A Was Clonidine taken within 24 hours: N/A Last intake: Intake Last Liquid Date 12/15/22 Last Liquid Time 21:00 Last Solid Date 12/15/22 Last Solid Time 16:00 Social No alcohol and No tobacco Exam alert, oriented x 3, clear to auscultation bilaterally and regular rate & rhythm Airway Submandibular: within normal limits Cervical ROM: within normal limits Mallampati: Class II Dentition: false Pulmonary Sleep Apnea Metabolic Morbid Obesity Musc/skel Lower Back Pain Anesthetic Plan ASA status: 3 Anesthesia: General Medications/Allergies Home Medications Medication Instructions Recorded Confirmed Last Taken Type cpap and supplies #1 ea 08/18/22 12/15/22 Unknown Rx CPAP #1 ea 09/28/22 12/15/22 Unknown Rx hydrocodone 5 mg-acetaminophen 325 1 tab PO Q6H PRN pain #20 tabs 12/07/22 12/15/22 12/09/22 Rx mg tablet ondansetron HCl 4 mg tablet 4 mg PO Q6H PRN nausea and 12/07/22 12/15/22 12/11/22 Rx vomiting #20 tabs tamsulosin 0.4 mg capsule 0.4 mg PO DAILY #20 caps 12/07/22 12/15/22 12/11/22 Rx Allergies Allergy/AdvReac Type Severity Reaction Status Date / Time cephalexin [From Keflex] Allergy Unknown Verified 12/15/22 13:25 Penicillins Allergy Unknown Verified 12/15/22 13:25 Current Medications Generic Name Dose Route Start Last Admin Trade Name Caroline PRN Reason Stop Dose Admin Sodium Chloride 1,000 mls @ 30 mls/hr 12/16/22 07:00 12/16/22 07:16 Sodium Chloride 0.9% IV 12/17/22 06:59 30 mls/hr .Q24H JHONY Administration PFSH Anesthesia Medical History Dysuria Hydronephrosis Left facial swelling Lumbar degenerative disc disease Nocturia JUAN DIEGO (obstructive sleep apnea) Osteoarthritis involving multiple joints on both sides of body Umbilical hernia Dr. Hayes 09/12/2021 visit Ureterolithiasis Urolithiasis Surgical History History of back surgery History of dental surgery Family History Mother Diabetes Hypertension Father Diverticulitis Social History Smoking and tobacco status: never smoked Second hand smoke exposure: No Alcohol intake: never Desire information about alcohol rehabilitation?: No Desire information about substance/drug rehabilitation?: No Marital status: Current occupational status: employed History of recent travel: Yes ([facility]) Data Anesthesia Cardiac Studies: No Data to Display
--- NOTE | 2022-12-16 08:32 | P.HPUD_ITS ---
Surgery/Procedure H&P Update DATE OF PROCEDURE: December 16, 2022 DATE H&P PERFORMED: 12/15/22 H&P UPDATE INFORMATION: I have reviewed H&P completed within last 30 days, I have examined patient prior to procedure, No changes to prior documentation and H&P is in [facility] EMR on date indicated PREOP DIAGNOSIS: Refractory, symptomatic right distal ureteral stone PLANNED PROCEDURE: Operation Date: 12/16/22 08:45 Proposed Procedures p Cystoscopy, Right: Retrograde, ureteroscopy laser, stent [id number], [id number] modifier 26 77143,N20.9(Not Applicable) - Chau Cohen MD s Retrograde Pyelogram(Right) - MD tadeo Coates Ureteroscopy(Right) - MD tadeo Coates Laser Lithotripsy(Right) - MD tadeo Coates Ureteral Stent Placement(Right) - Chau Cohen MD
[2022-12-16] MEDS: levofloxacin-dextrose 5 % 500 MG/100 ML PREMIX 100 MG IV (08:34)
--- NOTE | 2022-12-16 09:37 | P.OP_ITS ---
Operative Report Date of procedure: December 16, 2022 Pre-op diagnosis: Refractory, symptomatic right distal ureteral stone Post-op diagnosis: Refractory, symptomatic right distal ureteral stone Procedure done: 1. Cystoscopy, RIGHT retrograde ureteropyelogram 2. Right ureteroscopy, stone extraction. 3. Right ureteral stent placement (6 Taiwanese by 30 cm double-pigtail without string) Implants: Right ureteral stent Specimens removed/disposition: Right ureteral stone Pathology: Stone Surgeon: Vicki Estimated blood loss: Minimal Urine output: Not measured Complications: None Findings: Anesthesia: General Condition: Stable Disposition: PACU Intraoperative findings: * Stone in the expected position. * Ureter was very inflamed in that area * Stone removed intact without fragmentation * Stent left indwelling with plans to leave it in until 12/21/2022 Brief History: Wil is a very pleasant 47-year-old white male recently diagnosed with a 4 mm right distal ureteral stone with obstructive changes and ongoing symptomato logy. Stone did not appear to progress from its CT identified location on subsequent KUB x2. Further complicated by impending out of country travel to [place]. Ultimately he elected to proceed with endoscopic treatment of the stone. See H&P. Procedure: After routine preoperative evaluation examination and obtaining of informed consent he was taken to the operating suite on 12/16/2022 where general anesthesia was administered without difficulty after appropriate timeout was performed, SCDs confirmed to be functioning, preoperative antibiotics administered, beta-tim protocol confirmed. Prepped and draped in usual sterile fashion in dorsolithotomy position paying careful attention to avoiding pressure points. 21 Taiwanese cystoscope with 30 degree lens was introduced into urethra meatus and advanced into the bladder under videoscopy. Bladder was systematically examined. No stone was identified. An 8 Taiwanese cone-tip catheter was intubated into the right ureteral orifice for a right retrograde ureteropyelogram which demonstrated: Stone was seen in the very distal aspect of the ureter likely intramural tunnel. The ureter proximal to the stone was significantly dilated A flexible tip guidewire was advanced up the right ureter bypassing the stone but it did require an open-ended ureteral catheter and a zip wire in order to be able to bypass the stone. There was an instant surge of inspissated fluid as evidence of persistent obstruction. The open-ended ureteral catheter was then advanced beyond the level of the stone into the mid ureter and the zip wire was exchanged for a routine flexible tip guidewire without difficulty. The open- ended ureteral catheter was remove. The distal ureter was dilated with a 15 Taiwanese 4 cm balloon to no waist. Did not require high-pressure. A second guidewire was passed to use as a working wire. The first wire was secured to the drapes as a safety wire and then a 7 Taiwanese offset semirigid ureteroscope was advanced over the working wire up the right ureter. The stone was located in suspected position and easily accessible and flushed out of the ureter without basketing. Scope was passed to the proximal ureter with no difficulty due to the dilation and no additional stones were seen Scope was removed and then a 6 Taiwanese by 30 cm double-pigtail stent was advanced over the guidewire through a backloaded cystoscope into appropriate position as confirmed via fluoroscopy and cystoscopy. The bladder was drained. The stone was sent for pathologic evaluation intact. He tolerated the procedure well without complications and was awakened in the operating room and returned to the recovery room in stable condition. PLANS: 1. Anticipate discharge from outpatient surgery 2. Follow-up on 12/21/2019 3 in the afternoon for cystoscopy and stent removal. No x-rays required
--- NOTE | 2022-12-16 13:51 | ANE.PACU2 ---
Inpatient post-anesthesia follow up: Airway intact: Yes Vital signs: Temperature 97.9 F Pulse Rate 52 Respiratory Rate 16 Blood Pressure 136/87 Pulse Oximetry 95 Oxygen Delivery Me thod Room Air Oxygen Flow Rate Fraction of Inspir ed Oxygen Hydration adequate: Yes Nausea and vomiting: No Pain level: 3 Mental status: Baseline
[2022-12-22 21:21] LABS: Stone Source RIGHT URETERAL STONE
== END 2022-12-16 10:44 | disposition home or self-care (01) ==
PROVIDERS: PCP Family Medicine; Visit Provider Urology
PROC: 0TJB8ZZ Inspection of Bladder, Via Natural or Artificial Opening Endoscopic (ICD-10-PCS; CPT 52000; principal; 2022-12-16 08:35)
PROC: (CPT 74420; 2022-12-16 08:35)
PROC: 0TJ98ZZ Inspection of Ureter, Via Natural or Artificial Opening Endoscopic (ICD-10-PCS; CPT 52351; 2022-12-16 08:35)
PROC: (CPT 50605; 2022-12-16 08:35)
PROC: (CPT 52332; 2022-12-16 08:35)
DX: N20.1 Calculus of ureter (principal); G47.33 Obstructive sleep apnea (adult) (pediatric)
CPT/HCPCS: 52332; 52352; 82365; 88300; C2625; J1100; J1956; J2250; J2370; J2405; J2704; J2710; J3010; J3490; J7030; Q9967

== ENCOUNTER → 2022-12-21 11:47 | Outpatient (BNVA) | payer BC, MEDICAID, SELFPAY | PROVIDERS: PCP Family Medicine; Visit Provider Urology | DX: Z96.0 Presence of urogenital implants (principal); N20.9 Urinary calculus, unspecified | CPT/HCPCS: 52310 ==

== ENCOUNTER → 2023-08-23 14:44 | Outpatient (BNVA) | payer BC, MEDICAID, SELFPAY | PROVIDERS: PCP Family Medicine; Visit Provider Family Medicine | DX: N50.812 Left testicular pain (principal) | CPT/HCPCS: 81000; 87086; 87491; 87591 ==

== ENCOUNTER 2023-09-03 15:05 | Outpatient (CLI) | payer BC, MEDICAID, SELFPAY ==
--- NOTE | 2023-09-03 15:15 | US_ITS ---
WS: [id number] TESTICULAR ULTRASOUND HISTORY: right testicular pain COMPARISON: None available. TECHNIQUE: Real-time and color Doppler imaging or utilized to perform a testicular ultrasound. Right testicle: 4.6 cm x 3.2 cm x 3.3 cm. Normal size and echogenicity. No mass or torsion. Normal color Doppler is present throughout. Systolic and diastolic velocities are both present. Small hydrocele. Right epididymis: Normal epididymis with no increased vascularity. Left testicle: 4.6 cm x 3.2 cm x 3.0 cm. Normal size and echogenicity. No mass or torsion. Normal color Doppler is present throughout. Systolic and diastolic velocities are both present. Small hydrocele. Left epididymis: Normal epididymis with no increased vascularity. IMPRESSION: 1. No testicular mass or torsion. 2. Small bilateral hydroceles, RIGHT slightly greater than LEFT.
== END 2023-09-03 15:06 | disposition home or self-care (01) ==
LOC: RAD 15:07
PROVIDERS: PCP Family Medicine; Visit Provider Family Medicine
DX: N50.812 Left testicular pain (principal); N50.811 Right testicular pain
CPT/HCPCS: 76870

== ENCOUNTER 2023-12-17 08:06 | Outpatient (RCR) | payer BC, MEDICAID, SELFPAY | END 2023-12-29 23:59 | disposition home or self-care (01) | LOC: SPT 08:06 | PROVIDERS: PCP Family Medicine; Visit Provider Family Medicine | DX: M54.6 Pain in thoracic spine (principal); G89.29 Other chronic pain | CPT/HCPCS: 97161 ==

== ENCOUNTER 2023-12-31 07:48 | Outpatient (RCR) | payer BC, MEDICAID, SELFPAY | END 2024-01-21 23:59 | disposition home or self-care (01) | LOC: SPT 07:48 | PROVIDERS: PCP Family Medicine; Visit Provider Family Medicine | DX: M54.6 Pain in thoracic spine (principal); G89.29 Other chronic pain | CPT/HCPCS: 97110; 97140 ==

== ENCOUNTER 2024-02-09 09:02 | Day surgery (SDC) | payer BC, MEDICAID, SELFPAY ==
[2024-02-09 09:21] VITALS: BP 141/97; PULSE 61; RESP 18; TEMP 36.6; O2SAT 95
--- NOTE | 2024-02-09 09:36 | ANES.PREANE2 ---
Pre-Anesthetic Assessment Height/Weight: Height 1.85 m Weight 163.293 kg Temp Pulse Resp BP Pulse Ox O2 Del Method 97.8 F 61 18 141/97 95 Room Air 02/09/24 09:21 02/09/24 09:21 02/09/24 09:21 02/09/24 09:21 02/09/24 09:21 02/09/24 09:21 Operation Date: 02/09/24 10:30 Proposed Procedures p 54133 screen colonoscopy G0121 Screen colon a ris Z12.11(Not Applicable) - Wil Taylor DO Familial anesthetic complications: None Was Beta Randolph taken within 24 hours: N/A Was Clonidine taken within 24 hours: N/A Last intake: Intake Last Liquid Date 02/08/24 Last Liquid Time 21:30 Last Solid Date 02/07/24 Last Solid Time 19:00 Social No alcohol and No tobacco Exam alert, oriented x 3, clear to auscultation bilaterally and regular rate & rhythm Airway Mallampati: Class IV Dentition: false and other (implants) Comments: Comments: large neck circumference Pulmonary Sleep Apnea (compliant with cpap) Metabolic Morbid Obesity Anesthetic Plan ASA status: 3 Anesthesia: MAC Risk of > 500 ml blood loss (7ml/kg in children): No Medications/Allergies Home Medications Medication Instructions Recorded Confirmed Last Taken Type No Known Home Medications 02/09/24 02/09/24 Unknown History Allergies Allergy/AdvReac Type Severity Reaction Status Date / Time cephalexin [From Keflex] Allergy Unknown Verified 02/07/24 12:58 Penicillins Allergy Unknown Verified 02/07/24 12:58 [facility] Anesthesia Medical History Urolithiasis Lumbar degenerative disc disease Osteoarthritis involving multiple joints on both sides of body Umbilical hernia Dr. Hayes 09/12/2021 visit Dysuria Nocturia Left facial swelling Ureterolithiasis Hydronephrosis JUAN DIEGO (obstructive sleep apnea) Surgical History History of dental surgery History of back surgery Family History Mother Diabetes Hypertension Father Diverticulitis Social History Smoking and tobacco/nicotine status: never used tobacco/nicotine Second hand smoke exposure: No Alcohol intake: never Substance/Drug Use: never Marital status: Current occupational status: employed Data Anesthesia Cardiac Studies: No Data to Display
[2024-02-09] MEDS: sodium chloride 0.9% 1,000 ML 30 ML IV (09:40)
--- NOTE | 2024-02-09 10:19 | W.PM.OPSUD ---
Surgery/Procedure H&P Update DATE OF PROCEDURE: February 09, 2024 DATE H&P PERFORMED: 01/20/24 H&P UPDATE INFORMATION: I have reviewed H&P completed within last 30 days, I have examined patient prior to procedure and No changes to prior documentation PLANNED PROCEDURE: Operation Date: 02/09/24 10:30 Proposed Procedures p 76206 screen colonoscopy G0121 Screen colon a ris Z12.11(Not Applicable) - Wil Taylor, DO
[2024-02-09 10:55] VITALS: BP 120/80; PULSE 58; RESP 18; TEMP 36.3; O2SAT 96
[2024-02-09 11:20] VITALS: BP 148/79; PULSE 63; RESP 18; O2SAT 97
--- NOTE | 2024-02-09 11:35 | ANE.PACU2 ---
Inpatient post-anesthesia follow up: Airway intact: Yes Vital signs: Temperature 97.3 F Pulse Rate 63 Respiratory Rate 18 Blood Pressure 148/79 Pulse Oximetry 97 Oxygen Delivery Me thod Room Air Oxygen Flow Rate Fraction of Inspir ed Oxygen Hydration adequate: Yes Nausea and vomiting: No Pain level: 1 Mental status: Baseline
== END 2024-02-09 11:38 | disposition home or self-care (01) ==
PROVIDERS: PCP Family Medicine; Visit Provider Surgery
PROC: 0DJD8ZZ Inspection of Lower Intestinal Tract, Via Natural or Artificial Opening Endoscopic (ICD-10-PCS; CPT 45378; principal; 2024-02-09 10:30)
DX: Z12.11 Encounter for screening for malignant neoplasm of colon (principal); D12.2 Benign neoplasm of ascending colon; G47.30 Sleep apnea, unspecified; E66.01 Morbid (severe) obesity due to excess calories; Z68.42 Body mass index [BMI] 45.0-49.9, adult; G47.33 Obstructive sleep apnea (adult) (pediatric)
CPT/HCPCS: 45381; 45385; 88305; J2704; J7030

== ENCOUNTER 2024-05-03 06:18 | Day surgery (SDC) | payer BC, MEDICAID, SELFPAY ==
[2024-05-03 06:28] VITALS: BP 149/91; PULSE 57; RESP 16; TEMP 36.3; O2SAT 96; BMI 47.5
[2024-05-03] MEDS: sodium chloride 0.9% 1,000 ML 30 ML IV (06:42)
--- NOTE | 2024-05-03 07:02 | P.ANESASSM_ITS ---
Pre-Anesthetic Assessment Height/Weight: Height 1.85 m Weight 163.293 kg Temp Pulse Resp BP Pulse Ox O2 Del Method 97.3 F L 57 L 16 149/91 96 Room Air 05/03/24 06:28 05/03/24 06:28 05/03/24 06:28 05/03/24 06:28 05/03/24 06:28 05/03/24 06:28 Operation Date: 05/03/24 07:30 Proposed Procedures p Colonoscopy(Not Applicable) - Wil Taylor DO Familial anesthetic complications: none Was Beta Randolph taken within 24 hours: N/A Was Clonidine taken within 24 hours: N/A Last intake: Intake Last Liquid Date 05/02/24 Last Liquid Time 21:30 Last Solid Date 05/01/24 Last Solid Time 20:00 Social No alcohol and No tobacco Exam alert, oriented x 3, clear to auscultation bilaterally and regular rate & rhythm Airway Submandibular: within normal limits Cervical ROM: within normal limits Mallampati: Class II Dentition: false Pulmonary Sleep Apnea CV/HEM None reported None reported Hepatic None reported GI None reported Metabolic Morbid Obesity [facility] [place] Osteoarthritis/DJD Anesthetic Plan ASA status: 2 Anesthesia: MAC Risk of > 500 ml blood loss (7ml/kg in children): No Medications/Allergies Home Medications Medication Instructions Recorded Confirmed Last Taken Type No Known Home Medications 02/09/24 05/01/24 Unknown History Allergies Allergy/AdvReac Type Severity Reaction Status Date / Time cephalexin [From Keflex] Allergy Unknown Verified 05/01/24 12:06 Penicillins Allergy Unknown Verified 05/01/24 12:06 Current Medications Generic Name Dose Route Start Last Admin Trade Name Freq PRN Reason Stop Dose Admin Sodium Chloride 1,000 mls @ 30 mls/hr 05/03/24 06:30 05/03/24 06:42 Sodium Chloride 0.9% IV 05/04/24 06:29 30 mls/hr .Q24H JHONY Administration PFSH Anesthesia Medical History Urolithiasis Lumbar degenerative disc disease Osteoarthritis involving multiple joints on both sides of body Umbilical hernia Dr. Hayes 09/12/2021 visit Dysuria Nocturia Left facial swelling Ureterolithiasis Hydronephrosis JUAN DIEGO (obstructive sleep apnea) Surgical History History of dental surgery History of back surgery Family History Mother Diabetes Hypertension Father Diverticulitis Social History Smoking and tobacco/nicotine status: never used tobacco/nicotine Second hand smoke exposure: No Alcohol intake: never Substance/Drug Use: never Marital status: Current occupational status: employed Data Anesthesia Cardiac Studies: No Data to Display
--- NOTE | 2024-05-03 07:34 | PM.HP ---
Providers/Chief Complaint Primary Care Provider: Jessie Posadas DO Chief Complaint: D12.6 History of Present Illness Wil Morton is a 48 year old male Review of Systems General: Reports: 10 or more systems reviewed and unremarkable except in HPI and below Medications/Allergies Home Medications Medication Instructions Recorded Confirmed Last Taken Type No Known Home Medications 02/09/24 05/01/24 Unknown History Allergies Allergy/AdvReac Type Severity Reaction Status Date / Time cephalexin [From Keflex] Allergy Unknown Verified 05/01/24 12:06 Penicillins Allergy Unknown Verified 05/01/24 12:06 PFSH Acute PFSH: Medical History Urolithiasis Lumbar degenerative disc disease Osteoarthritis involving multiple joints on both sides of body Umbilical hernia Dr. Hayes 09/12/2021 visit Dysuria Nocturia Left facial swelling Ureterolithiasis Hydronephrosis JUAN DIEGO (obstructive sleep apnea) Surgical History History of dental surgery History of back surgery Family History Mother Diabetes Hypertension Father Diverticulitis Social History Smoking and tobacco/nicotine status: never used tobacco/nicotine Second hand smoke exposure: No Alcohol intake: never Substance/Drug Use: never Marital status: Current occupational status: employed Vitals/I&O/Wt Last Vital Signs Temp 97.3 F L 05/03/24 06:28 Pulse 57 L 05/03/24 06:28 Resp 16 05/03/24 06:28 BP 149/91 05/03/24 06:28 Pulse Ox 96 05/03/24 06:28 O2 Del Method Room Air 05/03/24 06:28 Weight last 48 hrs Weight 360 lb A&P Assessment and plan (1) Tubular adenoma of colon: Plan Colonoscopy Attestations Medical Necessity Statement*: Home Coding Level of Care Code Acute Code for Chg Fwd Diagnoses Tubular adenoma of colon D12.6
[2024-05-03 08:03] VITALS: BP 111/66; PULSE 60; RESP 17; TEMP 36.1; O2SAT 93
[2024-05-03 08:16] VITALS: BP 106/63; PULSE 59; RESP 16; O2SAT 95
[2024-05-03 08:25] VITALS: BP 126/85; RESP 58; O2SAT 96
--- NOTE | 2024-05-03 08:50 | ANE.PACU2 ---
Inpatient post-anesthesia follow up: Airway intact: Yes Vital signs: Temperature 97 F Pulse Rate 59 Respiratory Rate 58 Blood Pressure 126/85 Pulse Oximetry 96 Oxygen Delivery Me thod Room Air Oxygen Flow Rate Fraction of Inspir ed Oxygen Hydration adequate: Yes Nausea and vomiting: No Pain level: 1 Mental status: Baseline
== END 2024-05-03 08:52 | disposition home or self-care (01) ==
PROVIDERS: PCP Family Medicine; Visit Provider Surgery
PROC: 0DJD8ZZ Inspection of Lower Intestinal Tract, Via Natural or Artificial Opening Endoscopic (ICD-10-PCS; CPT 45378; principal; 2024-05-03 07:30)
DX: K57.30 Diverticulosis of large intestine without perforation or abscess without bleeding (principal); K64.8 Other hemorrhoids; D12.2 Benign neoplasm of ascending colon; D12.5 Benign neoplasm of sigmoid colon; G47.30 Sleep apnea, unspecified; E66.01 Morbid (severe) obesity due to excess calories; Z68.42 Body mass index [BMI] 45.0-49.9, adult; G47.33 Obstructive sleep apnea (adult) (pediatric)
CPT/HCPCS: 45385; 88305; J2704; J7030

== ENCOUNTER → 2024-06-06 14:55 | Outpatient (BNVA) | payer BC, SELFPAY | PROVIDERS: PCP Family Medicine; Visit Provider Nurse Practitioner Family | DX: E66.9 Obesity, unspecified (principal); Z76.89 Persons encountering health services in other specified circumstances; E66.01 Morbid (severe) obesity due to excess calories; Z68.42 Body mass index [BMI] 45.0-49.9, adult; G47.33 Obstructive sleep apnea (adult) (pediatric); M54.50 Low back pain, unspecified; G89.29 Other chronic pain | CPT/HCPCS: 80053; 80061; 83036; 84443; 85025 ==

== ENCOUNTER → 2024-07-10 14:14 | Outpatient (BNVA) | payer BC, SELFPAY | PROVIDERS: PCP Nurse Practitioner Family; Visit Provider Nurse Practitioner Family | DX: R41.89 Other symptoms and signs involving cognitive functions and awareness (principal); R53.83 Other fatigue; M79.10 Myalgia, unspecified site | CPT/HCPCS: 85651; 86618; 86666; 86757 ==

== ENCOUNTER 2024-07-25 17:39 | Emergency (ER) | payer BC, SELFPAY ==
[2024-07-25 17:52] VITALS: BP 167/90; PULSE 65; RESP 16; TEMP 36.7; O2SAT 97
--- NOTE | 2024-07-25 18:08 | XRR_ITS ---
PROCEDURE INFORMATION: Exam: XR Right Ankle Exam date and time: 07/25/2024 6:12 PM Age: 48 years old Clinical indication: Pain; Ankle and heel; Right; Additional info: Medial foot pain TECHNIQUE: Imaging protocol: Radiologic exam of the right ankle. Views: 3 or more views. COMPARISON: No relevant prior studies available. FINDINGS: Bones/joints: Borderline widening of the medial mortise, likely positional. Mild degenerative changes of the midfoot and ankle. No evidence of acute fracture or dislocation. Small plantar heel spur. Soft tissues: Moderate diffuse soft tissue swelling/edema. XR/XR ankle RT min 3V* [id number] IMPRESSION: 1. No evidence of acute fracture or dislocation. 2. Borderline widening of the medial mortise, likely positional. Consider additional imaging in the setting of trauma. Small adjacent calcification suggests this may be a chronic finding related to prior injury.
--- NOTE | 2024-07-25 18:09 | W.ED.EXTPRO ---
HPI - Extremity Problem General: Chief complaint: Extremity Injury, Lower Stated complaint: doctor sent xray right ankle Time Seen by Provider: 07/25/24 17:49 Source: patient Mode of arrival: ambulatory Limitations: no limitations History of Present Illness: Patient is a 48-year-old male presenting to the emergency department with atraumatic right foot pain beginning this morning. Was seen in urgent care and sent over for an x-ray. States he got out of bed and had sudden sharp pain to the medial aspect of his right foot, has never had this before. Denies any trauma or injury. No neurological symptoms are reported. States the pain is specifically worsened with weightbearing, pain is not reproducible to palpation. Vitals normal on arrival. No other concerning historical factors or pertinent medical history to report at this time. No history of diabetes. Has been using a cane to assist with ambulation. MD Complaint: extremity pain Onset (ago): hour(s) Location: right and lower extremity Quality: sharp Relieving factors: immobilization Exacerbating factors: weight bearing Associated symptoms: Reports no associated symptoms; Deny chest pain, fever(s) or rash Related Data Previous Rx's Medication Instructions Recorded hydrocortisone 2.5 % topical cream 1 applic UT QID PRN hemorrhoids 10 05/15/24 with perineal applicator days #30 grams (Anusol-HC) ibuprofen 600 mg tablet 600 mg PO Q8H PRN pain #30 tabs 07/25/24 Allergies Allergy/AdvReac Type Severity Reaction Status Date / Time cephalexin [From Keflex] Allergy Unknown Verified 07/25/24 17:57 Penicillins Allergy Unknown Verified 07/25/24 17:57 Review of Systems General: Reports: 10 or more systems reviewed and unremarkable except in HPI and below Const: Denies: fever(s) or chills Card: Denies: chest pain Resp: Denies: dyspnea or productive cough GI: Denies: abdominal pain, nausea, vomiting or diarrhea : Denies: flank pain Musc: Reports: extremity pain (right foot); Denies: neck pain, back pain, extremity swelling, joint pain, joint swelling, joint redness, joint warmth, limited range of motion or muscle weakness Skin/Breast: Denies: rash Neuro: Denies: headache(s), numbness in extremities or weakness in extremities PFS ED PFSH: Medical History Obesity Urolithiasis Lumbar degenerative disc disease Osteoarthritis involving multiple joints on both sides of body Umbilical hernia Dr. Hayes 09/12/2021 visit Dysuria Nocturia Left facial swelling Ureterolithiasis Hydronephrosis JUAN DIEGO (obstructive sleep apnea) Surgical History History of dental surgery History of back surgery Family History Mother Diabetes Hypertension Father Diverticulitis Social History Smoking and tobacco/nicotine status: unknown if used tobacco/nicotine Second hand smoke exposure: No Alcohol intake: never Substance/Drug Use: never Marital status: Current occupational status: employed Physical Exam Const: COMMON NORMALS: no acute distress, patient oriented x3, no limitations, alert and well nourished NUTRITIONAL APPEARANCE: obese HENMT: COMMON NORMALS: normocephalic and atraumatic HEAD & SCALP: normocephalic and atraumatic Neck/C-Spine: COMMON NORMALS: full ROM, supple and no meningeal signs Resp: COMMON NORMALS: normal respiratory effort, No use of accessory muscles and clear to auscultation bilaterally AUSCULTATION: clear to auscultation bilaterally Cardio: COMMON NORMALS: regular rate and regular rhythm RATE: regular rate RHYTHM: regular rhythm Extremity: COMMON NORMALS: normal to inspection, full ROM, capillary refill normal, no joint enlargement and no clubbing, cyanosis or edema NARRATIVE EXTREMITY EXAM: No reproducible tenderness to palpation of the right foot. No obvious deformity. Neuro: COMMON NORMALS: patient oriented x3, moves all extremities, no focal motor deficits and no sensory deficits noted SENSORIUM/ORIENTATION: Yes alert MENINGEAL SIGNS: Yes no meningeal signs Skin: COMMON NORMALS: no rashes or lesions noted GENERAL SKIN EXAM: no rashes or lesions noted Course Vital Signs: Vital signs: Vital Signs Temperature 98.1 F 07/25/24 17:52 Pulse Rate 65 07/25/24 17:52 Respiratory Rate 16 07/25/24 17:52 Blood Pressure 167/90 07/25/24 17:52 Pulse Oximetry 97 07/25/24 17:52 Oxygen Delivery Me thod Room Air 07/25/24 17:52 MDM - Extremity (Nontraumatic) Medical Decision Making Patient sent over from urgent care to have x-ray of right ankle. Atraumatic, beginning this morning. Upon examination pain was noted to be to the medial aspect, not on the plantar aspect and currently does not favor a plantar fasciitis at this time. X-ray did not show any evidence of fracture or dislocation. Cannot fully rule out a plantar fasciitis and did encourage him to follow-up with his primary care, of which I contacted and informed of patient's being seen here in the emergency department. PCP agrees and patient will be discharged home at this time. Lab Data Radiology Impressions Ankle X-Ray 07/25/24 18:08 IMPRESSION: 1. No evidence of acute fracture or dislocation. 2. Borderline widening of the medial mortise, likely positional. Consider additional imaging in the setting of trauma. Small adjacent calcification suggests this may be a chronic finding related to prior injury. All radiology interpretation(s) finalized by discharge Discharge Plan Discharge Patient Disposition: Home Clinical Impression: Acute pain of right foot Condition: Stable Prescriptions: No Action hydrocortisone [Anusol-HC] 2.5 % cream with perineal applicator 1 applic UT QID PRN (Reason: hemorrhoids) 10 Days Qty: 30 0RF ibuprofen 600 mg tablet 600 mg PO Q8H PRN (Reason: pain) Qty: 30 0RF Discharge Orders: Discharge ED (Routine); Ordered 07/25/24 Ordered By: Donovan Castro Referrals: Catarino Land METAL STAMPING MACHINE OPERATOR [Primary Care Provider] - Discharge Diet: Usual diet Discharge Activity: Increase activity as tolerated Patient Instructions: Pain Management Activity Restrictions/Additional Instructions: Follow-up with your primary care provider early this week as discussed. Tylenol and ibuprofen at home. Gentle range of motion exercises as tolerated. Return with any new or worsening symptoms you may have. Coding Level of Care Code ED Horticulture Superintendent for Demarcus Stern
== END 2024-07-25 18:52 | disposition home or self-care (01) ==
PROVIDERS: Emergency Provider Physician Assistant; PCP Nurse Practitioner Family
DX: M79.671 Pain in right foot (principal)
CPT/HCPCS: 73610; 99283

== ENCOUNTER 2025-03-04 08:26 | Emergency (ER) | payer BC, SELFPAY ==
[2025-03-04 08:30] VITALS: BP 126/90; PULSE 68; RESP 16; TEMP 36.6; O2SAT 97; BMI 45.5
--- NOTE | 2025-03-04 08:38 | CTR_ITS ---
PROCEDURE INFORMATION: Exam: CT Abdomen And Pelvis Without Contrast Exam date and time: 03/04/2025 9:06 AM Age: 49 years old Clinical indication: Pain; Other: Back; Prior surgery; Surgery date: 6+ months; Surgery type: Lumbar; HX of renal calculous; Additional info: Back/flank pain TECHNIQUE: Imaging protocol: Computed tomography of the abdomen and pelvis without contrast. Total images: 676 Radiation optimization: All CT scans at this facility use at least one of these dose optimization techniques: automated exposure control; mA and/or kV adjustment per patient size (includes targeted exams where dose is matched to clinical indication); or iterative reconstruction. COMPARISON: CT kidney stone [id number] 12/07/2022 7:12 AM RADIATION DOSE METRICS: Total DLP (mGy-cm): 1296.93 FINDINGS: Lungs: Benign granulomatous disease of the lung is noted. Liver: Normal. No mass. Gallbladder and biliary ducts: Normal. No calcified stones. No ductal dilation. Pancreas: Normal. No ductal dilation. Spleen: Normal. No splenomegaly. Adrenal glands: Normal. No mass. Kidneys and ureters: Normal. No hydronephrosis. Stomach and bowel: Unremarkable. No obstruction. No mucosal thickening. Appendix: No evidence of appendicitis. Intraperitoneal space: Unremarkable. No free air. No significant fluid collection. Vasculature: Incidental phleboliths noted. Lymph nodes: Unremarkable. No enlarged lymph nodes. Urinary bladder: Unremarkable as visualized. Reproductive: The prostate gland contains benign-appearing calcifications that are likely parenchymal. Bones/joints: Mild scattered degenerative changes of the spine. Soft tissues: Fat-containing umbilical hernia is present without inflammation. CT/CT kidney stone [id number] IMPRESSION: No acute findings.
--- NOTE | 2025-03-04 08:39 | W.ED.BACK ---
HPI - Back Pain/Injury General: Chief Complaint: Back Pain/Injury Stated Complaint: lower back pain Time Seen by Provider: 03/04/25 08:33 Source: patient Mode of arrival: ambulatory Limitations: no limitations History of Present Illness: 49-year-old male states that he been having some back pain since last night states pain is sharp pain he rates an 8 out of 10 he states it is a band across his back denies any worsening pain with palpation or movement has had a history of kidney stones denies any dysuria denies any vomiting or fevers. Associated symptoms: Deny abdominal pain, chills, fever(s), nausea or vomiting Related Data Previous Rx's ?Medication ?Instructions ?Recorded CPAP mask and supplies #1 ea 01/03/25 methocarbamol 750 mg tablet 750 mg PO Q6H PRN spasms #20 tabs 03/04/25 naproxen 500 mg tablet (Naprosyn) 500 mg PO BID PRN pain #20 tabs 03/04/25 Allergies Allergy/AdvReac Type Severity Reaction Status Date / Time cephalexin (From Keflex) Allergy Unknown Verified 11/01/24 08:39 Penicillins Allergy Unknown Verified 11/01/24 08:39 Review of Systems Const: Denies: fever(s), chills, body aches or change in appetite ENMT: Denies: throat pain or dental pain Card: Denies: chest pain Resp: Denies: dyspnea GI: Denies: abdominal pain, nausea, vomiting or diarrhea Musc: Reports: back pain; Denies: neck pain Skin/Breast: Denies: rash Neuro: Denies: headache(s) PFSH ED PFSH: Medical History Obesity Urolithiasis Lumbar degenerative disc disease Osteoarthritis involving multiple joints on both sides of body Umbilical hernia Dr. Hayes 09/12/2021 visit Dysuria Nocturia Left facial swelling Ureterolithiasis Hydronephrosis JUAN DIEGO (obstructive sleep apnea) Surgical History History of dental surgery History of back surgery Family History Mother Diabetes Hypertension Father Diverticulitis Social History Smoking and tobacco/nicotine status: never used tobacco/nicotine Second hand smoke exposure: No Alcohol intake: never Substance/Drug Use: never Marital status: Current occupational status: employed Physical Exam Const: COMMON NORMALS: no acute distress, patient oriented x3 and healthy appearing HENMT: COMMON NORMALS: normocephalic and atraumatic HEAD & SCALP: normocephalic and atraumatic Eye: COMMON NORMALS: conjunctivae normal CONJUNCTIVA: Yes conjunctivae normal Neck/C-Spine: COMMON NORMALS: full ROM and supple Chest: COMMONS NORMALS: normal inspection of the chest Resp: COMMON NORMALS: normal respiratory effort Cardio: COMMON NORMALS: regular rate, regular rhythm and No murmurs present (Cardio) RATE: regular rate RHYTHM: regular rhythm GI: COMMON NORMALS: Normal to inspection, nondistended, normoactive bowel sounds present, Soft to palpation, non-tender and no masses PALPATION: Yes Soft to palpation Extremity: COMMON NORMALS: normal to inspection and full ROM Neuro: COMMON NORMALS: patient oriented x3, moves all extremities and no focal motor deficits Psych: COMMON NORMALS: mental status grossly normal, Normal thought process present and cooperative THOUGHT PROCESS: Normal thought process present Skin: COMMON NORMALS: no rashes or lesions noted and no wounds GENERAL SKIN EXAM: no rashes or lesions noted Course Vital Signs: Vital signs: Vital Signs Temperature 97.9 F 03/04/25 08:30 Pulse Rate 68 03/04/25 08:30 Respiratory Rate 17 03/04/25 08:58 Blood Pressure 126/90 03/04/25 08:30 Pulse Oximetry 98 03/04/25 08:58 Oxygen Delivery Me thod Room Air 03/04/25 08:30 MDM - Back Pain/Injury Medical Decision Making Patient presents here with back pain is likely muscular in nature imaging CT here showed no kidney stone blood work urinalysis within normal his pains improved will place him on Naprosyn Robaxin he has to follow-up with PCP and return if worsening. Medical Records I reviewed the patient's medical records. Labs I reviewed the patient's lab results. 03/04/25 09:16 03/04/25 09:16 Radiology Impressions Abdomen/Pelvis CT 03/04/25 08:38 IMPRESSION: No acute findings. Laboratory Results WBC 5.84 10^3/uL (3.29-11.43) 03/04/25 09:16 Corrected WBC Cancelled 03/04/25 08:47 RBC 5.74 10^6/uL (3.85-5.65) H 03/04/25 09:16 Hgb 16.60 g/dL (11.27-16.99) 03/04/25 09:16 Hct 49.4 % (37-53) 03/04/25 09:16 MCV 86.1 fl (82-101) 03/04/25 09:16 MCH 28.9 pg (27-33) 03/04/25 09:16 MCHC 33.6 g/dL (30-55) 03/04/25 09:16 RDW 13.6 % (12.1-15.1) 03/04/25 09:16 Plt Count 141 10^3/cmm (157-399) L 03/04/25 09:16 MPV 11.5 fL (7.4-10.4) H 03/04/25 09:16 Gran % Cancelled 03/04/25 08:47 Neut % (Auto) 77.5 % 03/04/25 09:16 Lymph % (Auto) 14.2 % 03/04/25 09:16 [place] % (Auto) 6.8 % 03/04/25 09:16 Eos % (Auto) 0.7 % 03/04/25 09:16 Baso % (Auto) 0.5 % 03/04/25 09:16 Neut # (Auto) 4.52 10^3/uL (1.8-7.7) 03/04/25 09:16 Lymph # (Auto) 0.8 10^3/uL (0.8-4.8) 03/04/25 09:16 [place] # (Auto) 0.4 10^3/uL (0.2-0.9) 03/04/25 09:16 Eos # (Auto) 0.0 10^3/uL (0.0-0.8) 03/04/25 09:16 Baso # (Auto) 0.0 10^3/uL (0.0-0.1) 03/04/25 09:16 Absolute Gran (auto) Cancelled 03/04/25 08:47 Nucleated RBC % (auto) 0 % 03/04/25 09:16 Nucleated RBCs # 0.0 /100WBC 03/04/25 09:16 Sodium 137 mmol/L (136-145) 03/04/25 09:16 Potassium 4.2 mmol/L (3.5-5.1) 03/04/25 09:16 Chloride 106 mmol/L (98-107) 03/04/25 09:16 Carbon Dioxide 20 mmol/L (22-29) L 03/04/25 09:16 Anion Gap 15.2 (5-19) 03/04/25 09:16 BUN 14 mg/dL (6-20) 03/04/25 09:16 Creatinine 0.7 mg/dL (0.7-1.2) 03/04/25 09:16 GFR Calculation 119.4 mL/min (90-130) 03/04/25 09:16 Glucose 94 mg/dL (65-115) 03/04/25 09:16 Calculated Osmolality 284 mOsm/kg (285-295) L 03/04/25 09:16 Calcium 8.7 mg/dL (8.5-10.5) 03/04/25 09:16 Total Bilirubin 1.2 mg/dL (0.15-1.2) 03/04/25 09:16 AST 15 U/L (0-40) 03/04/25 09:16 ALT 25 U/L (0-41) 03/04/25 09:16 Alkaline Phosphatase 47 U/L (40-130) 03/04/25 09:16 Total Protein 6.7 g/dL (6.6-8.7) 03/04/25 09:16 Albumin 4.2 g/dL (3.5-5.2) 03/04/25 09:16 Globulin 2.5 g/dL (1.3-4.6) 03/04/25 09:16 Lipase 20 U/L (13-60) 03/04/25 09:16 Urine Color Yellow (Yellow) 03/04/25 09:23 Urine Appearance Clear (CLEAR) 03/04/25 09:23 Urine pH 5 (5-7) 03/04/25 09:23 Ur Specific [place] 1.015 (1.005-1.030) 03/04/25 09:23 Urine Protein Neg (Negative) 03/04/25 09:23 Urine Glucose (UA) Norm (Normal) 03/04/25 09:23 Urine Ketones 2+ (Negative) H 03/04/25 09:23 Urine Blood Neg (Negative) 03/04/25 09:23 Urine Nitrate Negative (Negative) 03/04/25 09:23 Urine Bilirubin Neg (Negative) 03/04/25 09:23 Urine Urobilinogen Neg mg/dL (Negative) 03/04/25 09:23 Ur Leukocyte Esterase Negative (Negative) 03/04/25 09:23 Amorphous Sediment Not Reportable 03/04/25 09:23 All radiology interpretation(s) finalized by discharge Discharge Plan Discharge Patient Disposition: Home Clinical Impression: Back pain Condition: Stable Prescriptions: New methocarbamol 750 mg tablet 750 mg PO Q6H PRN (Reason: spasms) Qty: 20 0RF naproxen [Naprosyn] 500 mg tablet 500 mg PO BID PRN (Reason: pain) Qty: 20 0RF No Action (DME) CPAP mask and supplies See Rx Instructions .Route .MEDSUPPLY Qty: 1 0RF Rx Instructions: As directed Discharge Orders: Discharge ED (Routine); Ordered 03/04/25 Ordered By: Ladan Rhodes Referrals: Catarino Land NP [Primary Care Provider] - 4-7 days Discharge Diet: Advance as tolerated Discharge Activity: Resume usual activity Patient Instructions: Back Pain (ED) Print Language: Slovak Coding Level of Care Code ED Sales Attendant Building Materials for Demarcus Stern
[2025-03-04] MEDS: ondansetron 2 mg/ML SDV 2 mL 4 MG IVP (08:57)
[2025-03-04 08:58] VITALS: RESP 17; O2SAT 98
[2025-03-04] MEDS: ketorolac 30 mg/mL INJ 15 MG IVP (08:58)
[2025-03-04] MEDS: morphine 4 mg/mL SDV 1 mL IVP (08:58)
[2025-03-04 09:20] LABS: Basophils % 0.5 %; Eosinophils % 0.7 %; Hematocrit 49.4 % (37-53); Lymphocytes # 0.8 10^3/uL (0.8-4.8); Lymphocytes % 14.2 %; Mean Corpuscular HGB Conc 33.6 g/dL (30-55); Mean Corpuscular Hemoglobin 28.9 pg (27-33); Mean Corpuscular Volume 86.1 fl (82-101); Mean Platelet Volume 11.5 fL (7.4-10.4); Monocytes # 0.4 10^3/uL (0.2-0.9); Monocytes % 6.8 %; Neutrophils # 4.52 10^3/uL (1.8-7.7); Neutrophils % 77.5 %; Nucleated Red Blood Cells % 0 %; Platelet Count 141 10^3/cmm (157-399); Red Blood Count 5.74 10^6/uL (3.85-5.65); Red Cell Distribution Width 13.6 % (12.1-15.1); White Blood Count 5.84 10^3/uL (3.29-11.43)
[2025-03-04 09:27] LABS: Add Urine Microscopic? NO
[2025-03-04 09:31] LABS: Bilirubin Urine Neg (Negative); Blood Urine Neg (Negative); Glucose Urine UA Norm (Normal); Ketones Urine 2+ (Negative); Leukocyte Esterase Urine Negative (Negative); Nitrate Urine Negative (Negative); Protein Urine Neg (Negative); Specific Gravity, Urine 1.015 (1.005-1.030); Urine Appearance Clear (CLEAR); Urine Color Yellow (Yellow); Urobilinogen Urine Neg (Negative); pH Urine 5 (5-7)
[2025-03-04 09:32] LABS: Charge for UA Resulting for Rev
[2025-03-04 09:43] LABS: Alanine Aminotransferase 25 U/L (0-41); Albumin Level 4.2 g/dL (3.5-5.2); Alkaline Phosphatase 47 U/L (40-130); Anion Gap 15.2 (5-19); Aspartate Amino Transferase 15 U/L (0-40); Blood Urea Nitrogen 14 mg/dL (6-20); Calcium 8.7 mg/dL (8.5-10.5); Carbon Dioxide 20 mmol/L (22-29); Chloride 106 mmol/L (98-107); Globulin 2.5 g/dL (1.3-4.6); Glomerular Filtration Rate 119.4 mL/min (90-130); Glucose 94 mg/dL (65-115); Lipase 20 U/L (13-60); Osmolality Calculated 284 mOsm/kg (285-295); Potassium 4.2 mmol/L (3.5-5.1); Sodium 137 mmol/L (136-145); Total Bilirubin 1.2 mg/dL (0.15-1.2); Total Protein 6.7 g/dL (6.6-8.7)
[2025-03-04 10:21] VITALS: BP 117/74; PULSE 71; O2SAT 95
== END 2025-03-04 10:22 | disposition home or self-care (01) ==
PROVIDERS: Emergency Provider Emergency Medicine; PCP Nurse Practitioner Family
DX: M54.9 Dorsalgia, unspecified (principal)
CPT/HCPCS: 36415; 74176; 80053; 81003; 83690; 85025; 96374; 96375; 99285; J1885; J2270; J2405

== ENCOUNTER → 2025-05-25 07:11 | Outpatient (BNVA) | payer BC, SELFPAY | PROVIDERS: PCP Family Medicine; Visit Provider Family Medicine | DX: Z00.00 Encounter for general adult medical examination without abnormal findings (principal); Z13.6 Encounter for screening for cardiovascular disorders; R53.83 Other fatigue; E53.8 Deficiency of other specified B group vitamins | CPT/HCPCS: 80053; 80061; 81000; 82607; 84403; 84443; 85025 ==